=== PATIENT | female | born 1990 | race Two or more races ===

== ENCOUNTER 2023-07-06 20:34 | Emergency (ER) | payer MEDICAID ==
[~2023-07-06] VITALS: Ht 165.1 cm; Wt 100.0 kg
[2023-07-06] MEDS ORDERED: LACTATED RINGER'S 1,000 ML IV ONE (22:30)
[2023-07-06 23:16] VITALS: PULSE 71; RESP 20; TEMP 98.4; O2SAT 98
[2023-07-07 00:25] VITALS: BP 106/60; PULSE 96; RESP 18; O2SAT 98
== END 2023-07-07 00:46 | disposition home or self-care (01) ==
LOC: ER 20:34
DX: O9A.213 Injury, poisoning and certain other consequences of external causes complicating pregnancy, third trimester (principal); Z3A.34 34 weeks gestation of pregnancy; V49.9XXA Car occupant (driver) (passenger) injured in unspecified traffic accident, initial encounter; Y93.I9 Activity, other involving external motion; Y92.89 Other specified places as the place of occurrence of the external cause; Y99.8 Other external cause status
CPT/HCPCS: 76815; 96360; 99284; J7030